=== PATIENT | female | born 1965 | race African-American/Black ===

== ENCOUNTER 2022-07-25 04:08 | Day surgery (SDC) | payer OTHER ==
[2022-07-24 12:53] VITALS: BMI 30.2
[~2022-07-25 04:08] MED LIST: ACETAMINOPHEN 325 MG TABLET (FP) PO PRN; OFLOXACIN 0.3% OPHTHALMIC SOLUTION 5 ML BOTTLE OP SCH
[2022-07-25] MEDS ORDERED: OFLOXACIN 0.3% OPHTHALMIC SOLUTION 5 ML BOTTLE ONE (10:05)
[2022-07-25] MEDS ORDERED: OFLOXACIN 0.3% OPHTHALMIC SOLUTION 5 ML BOTTLE OS ONE ×3 (10:27→10:40)
[2022-07-25 10:52] VITALS: RESP 16
[2022-07-25] MEDS ORDERED: ACETAMINOPHEN INJECTION 100 ML IVPB ONE (11:43)
[2022-07-25] MEDS ORDERED: MIDAZOLAM HCL 2 MG/2 ML SINGLE DOSE VIAL ONE (11:45)
[2022-07-25] MEDS ORDERED: TETRACAINE 0.5% OPHTH SOLN 2 ML BOTTLE OS ONE (11:47)
[2022-07-25] MEDS ORDERED: POVIDONE-IODINE 5% OPHTHALMIC PREP 30 ML SOLUTION OS ONE (11:49)
[2022-07-25] MEDS ORDERED: LIDOCAINE 1%/EPI 1:100000 (50 ML MULTI DOSE VIAL) INF ONE (11:56)
[2022-07-25] MEDS ORDERED: TRIAMCINOLONE ACET 40MG/1ML VIAL IM ONE (11:58)
[2022-07-25] MEDS ORDERED: ACETAMINOPHEN 325 MG TABLET (FP) PO ONE (13:37)
[2022-07-25] MEDS ORDERED: ACETAMINOPHEN 325 MG TABLET (FP) ONE (13:38)
[2022-07-25 13:48] VITALS: BP 137/86; PULSE 64; TEMP 97.5
== END 2022-07-25 13:48 | disposition home or self-care (01) ==
LOC: JASU-SURG 04:08
PROVIDERS: ATTEND Ophthalmology
PROC: 08U107Z Supplement of Left Eye with Autologous Tissue Substitute, Open Approach (ICD-10-PCS; principal; 2022-07-25 12:00)
DX: H11.022 Central pterygium of left eye (principal)
CPT/HCPCS: 88304-TC

== ENCOUNTER 2023-08-26 00:24 | Emergency (ER) | payer OTHER ==
[2023-08-26 00:31] VITALS: BP 146/87; PULSE 77; RESP 16; TEMP 98.2; BMI 30.2
[2023-08-26 01:34] LABS: BASO % 1.3 % (0-2.0); EOS % 2.5 % (0-4.5); HEMATOCRIT 36.4 % (32.4-45.2); HEMOGLOBIN 12.3 GM/dL (10.7-15.3); LYMPH % 30.9 % (8-40); MCH 29.7 pg (25.7-33.7); MCHC 33.6 g/dl (32.0-36.0); MEAN CELL VOLUME 88.3 fl (80-96); MEAN PLT VOLUME 8.1 fl (7.5-11.1); MONO % 9.4 % (3.8-10.2); NEUT % 55.9 % (42.8-82.8); PLATELET COUNT 195 10^3/uL (134-434); RBC 4.13 M/mm3 (3.60-5.2); RDW 14.2 % (11.6-15.6); WHITE BLOOD COUNT 4.5 K/mm3 (4.0-10.0)
[2023-08-26 01:43] LABS: INR 1.01 (0.83-1.09); PROTHROMBIN TIME (PATIENT) 11.4 SEC (9.7-13.0)
[2023-08-26 01:46] LABS: ACTIVATED PTT 30.1 SECONDS (25.2-36.5)
[2023-08-26 01:54] LABS: POTASSIUM 3.6 mmol/L (3.5-5.1)
[2023-08-26 01:56] LABS: BLOOD UREA NITROGEN 21.3 mg/dL (7-18); CALCIUM 9.2 mg/dL (8.5-10.1)
[2023-08-26 01:57] LABS: ALBUMIN 3.4 g/dl (3.4-5.0)
[2023-08-26 02:00] LABS: CREATININE 1.1 mg/dL (0.55-1.3)
[2023-08-26 02:01] LABS: BILIRUBIN,TOTAL 0.2 mg/dL (0.2-1); TOT PROT 6.8 g/dl (6.4-8.2)
[2023-08-26] MEDS ORDERED: FAMOTIDINE 20 MG/50 ML IVPB 20 MG/50 ML MG IVPB ONE (02:01)
[2023-08-26] MEDS ORDERED: PANTOPRAZOLE SODIUM 40 MG/100 ML BAG IVPB ONE (02:02)
[2023-08-26] MEDS ORDERED: MAG HYDROX/AL HYDROX/SIMETH 30 ML UNIT-DOSE CUP ONE (02:02)
[2023-08-26] MEDS ORDERED: ACETAMINOPHEN INJECTION 100 ML IVPB ONE (02:02)
[2023-08-26] MEDS: MAG HYDROX/AL HYDROX/SIMETH -MYLANTA- ORAL SUSPENSION PO ONE (02:08)
[2023-08-26] MEDS: ACETAMINOPHEN 1000 MG/100 ML BAG IVPB ONE (02:09)
[2023-08-26] MEDS ORDERED: PANTOPRAZOLE 40 MG TABLET PO ONE (02:10)
[2023-08-26] MEDS: PANTOPRAZOLE 40 MG TABLET PO ONE (02:13)
== END 2023-08-26 02:37 | disposition home or self-care (01) ==
LOC: JER 00:24
PROC: 3E033NZ Introduction of Analgesics, Hypnotics, Sedatives into Peripheral Vein, Percutaneous Approach (ICD-10-PCS; principal; 2023-08-26)
DX: K21.9 Gastro-esophageal reflux disease without esophagitis (principal); R07.89 Other chest pain; R11.10 Vomiting, unspecified; M79.602 Pain in left arm; M25.512 Pain in left shoulder
CPT/HCPCS: 36415; 71046-TC-FY; 80053; 83735; 84484; 85025; 85610; 85730; 93005; 93010; 99285-25; J0131